=== PATIENT | female | born 1970 | race Caucasian/White ===

== ENCOUNTER 2021-08-11 13:37 | Outpatient (CLI) | payer MEDICARE, MEDICAID | END 2021-08-11 13:38 | disposition home or self-care (01) | LOC: CSHMAMMO 13:37 | PROVIDERS: ATTEND Registered Nurse Community Health | DX: Q83.9 Congenital malformation of breast, unspecified (principal) | CPT/HCPCS: 77066; G0279 ==

== ENCOUNTER 2022-09-04 10:33 | Outpatient (CLI) | payer MEDICARE, MEDICAID ==
[~2022-09-04 10:33] MED LIST: HYDROmorphone 2 MG/ML VIAL SLOW IVP PRN; Ondansetron HCl/PF 4 MG/2 ML Vial IVP PRN; Promethazine HCl 25 MG/ML VIAL IM PRN
== END 2022-09-04 10:34 | disposition home or self-care (01) ==
LOC: CSHMAMMO 10:33
PROVIDERS: ATTEND Registered Nurse Hospice
DX: Z12.31 Encounter for screening mammogram for malignant neoplasm of breast (principal); Z85.41 Personal history of malignant neoplasm of cervix uteri
CPT/HCPCS: 77063; 77067

== ENCOUNTER 2024-09-25 12:24 | Outpatient (CLI) | payer MEDICARE, MEDICAID | END 2024-09-25 12:25 | disposition home or self-care (01) | LOC: CSHULT 12:24 | PROVIDERS: ATTEND Internal Medicine | DX: R33.9 Retention of urine, unspecified (principal) | CPT/HCPCS: 76770 ==